=== PATIENT | male | born 1995 | race Caucasian/White ===

== ENCOUNTER 2017-06-16 17:56 | Emergency (ER) | payer OTHER ==
[2017-06-16 18:04] VITALS: TEMP 98.2
--- NOTE | 2017-06-16 18:08 | EDPHY ---
H & P Stated Complaint: POLYSUBSTANCE DRUG/ETOH ABUSE/WANTS DETOX HEROOIN XANAX/ KETAMINE Time Seen by Provider: 06/16/17 18:04 - Personal History Current Tetanus/Diphtheria Vaccine: No - Medical/Surgical History Hx Asthma: No Hx Chronic Respiratory Disease: No Hx Diabetes: No Hx Cardiac Disease: No Hx Renal Disease: No Hx Cirrhosis: No Hx Alcoholism: Yes Hx HIV/AIDS: No Hx Splenectomy or Spleen Trauma: No Other PMH: foot fx, HTN - Social History Smoking Status: Current every day smoker Constitutional: Initial Vital Signs Temperature (C) 36.8 C 06/16/17 18:00 Heart Rate 118 H 06/16/17 18:00 Respiratory Rate 22 H 06/16/17 18:00 Blood Pressure 136/113 H 06/16/17 18:00 O2 Sat (%) 91 L 06/16/17 18:00 O2 Delivery Mode Room Air O2 (L/minute) 2 Allergies/Adverse Reactions: No Known Allergies Allergy (Verified 06/16/17 17:59) Home Medications: Medication Instructions Recorded Lisinopril 04/09/15 Flexeril 06/16/17 GABAPENTIN 06/16/17 Omeprazole 06/16/17 Seroquel 06/16/17 Medical Decision Making - Diagnostics Imaging Results: Imaging Impressions Ankle X-Ray 06/16/17 19:17 Impression: No evidence for acute osseous abnormality. Chronic findings, as above. Wrist X-Ray 06/16/17 19:17 Impression: No evidence for acute osseous abnormal bony right wrist. Imaging: I viewed and interpreted images myself ED Course/Re-evaluation: CHIEF COMPLAINT: Polysubstance abuse / intoxication HISTORY OF PRESENT ILLNESS: This patient is a 22 year old male arriving with his friends following consumption of multiple substances today. He states is has taken "heroin (smoked ), ketamine (snorted), Xanax, alcohol, marijuana, Vyvanse, cocaine, and possibly a couple caps of mushrooms". He states he particularly enjoys " Country Time lemonade with ketamine - wowzers!" He currently feels "really really bad". He denies any injuries. His friends at bedside state they are only aware of heavy alcohol consumption, "the majority of a handle in the last two days". They state he has been talking about seeking treatment, but has also expressed suicidal ideation while drinking. They called a local detox center, but were referred to the ER for medical clearance and possible Librium prescription for withdrawal. His friend states he was previously in sober living at [facility], and asked to live with her following this discharge. He has stayed with her for the last five months, and began drinking and using pharmaceutical and illicit drugs again. His friends state he does not do heroin, and they doubt he has used the other substances he mentioned recently. His friends state he may have used cocaine in the last month. REVIEW OF SYSTEMS: A 10 point review of systems is unobtainable due to the patient's intoxication. PHYSICAL EXAM: HR, BP, O2 Sat, RR. Temp noted General Appearance: Alert, well hydrated, appropriate, and non-toxic appearing. Head: Atraumatic without scalp tenderness or obvious injury Eyes: Pupils equal, round, reactive to light and accommodation, EOMI, no trauma , no injection. Ears: Clear bilaterally, no perforation, normal landmarks Nose: Atraumatic, no rhinorrhea, clear. Throat: There is no erythema or exudates, no lesions, normal tonsils, mucus membranes moist. Neck: Supple, 2+ carotid upstroke, nontender, no lymphadenopathy. Respiratory: No retractions, no distress, no wheezes, and no accessory muscle use. Lungs are clear to auscultation bilaterally. Cardiovascular: Regular rate and rhythm, no murmurs, rubs, or gallops. Bilateral carotid, radial, dorsalis pedis, and posterior tibial pulses intact. Good capillary refill all extremities. Gastrointestinal: Abdomen is soft, nontender, non-distended, no masses, no rebound, no guarding, no peritoneal signs. Musculoskeletal: Normal active ROM of all extremities, atraumatic. Neurological: Alert, appropriate, and interactive. The patient has normal DTRs and non-focal cranial nerves, motor, sensory, and cerebellar exam. Skin: No rashes, good turgor, no nodules on palpation. Past medical history: Chronic alcoholic. Past surgical history: Noncontributory Family history: Noncontributory. Social history: Friends at bedside. Currently living with a friend following discharge from a sober living facility. DIFFERENTIAL DIAGNOSIS: The differential diagnosis for the patient's altered mental status included but was not limited to hypoglycemia, infectious process, electrolyte abnormality, head injury, neurologic process, anemia, cardiac process, and intoxicants. MEDICAL DECISION MAKING: The patient is a 22 year old male presenting for evaluation of polysubstance abuse. Plan for labs including CBC, BMP, EtOH, Drug Screen, Salicylates, and acetaminophen screening. Physical exam reveals no signs of trauma. Laboratory studies unremarkable. EtOH high at 368. All other substance tests negative including marijuana, benzodiazepines, amphetamines, and cocaine. Plan for transfer to the [facility] when the patient is sober enough. Reassessed. Discussed the patient's substance use. He is now complaining of right wrist and ankle pain secondary to a fall. Plan for x-rays. Right wrist and ankle x-rays reviewed. Negative for acute fracture. The patient's mother is now at bedside. Discussed followup. He is scheduled for an appointment tomorrow with [facility]. His mother agrees with discharge to the [facility] this evening. She will pick him up there tomorrow and take him to [facility] for further evaluation and possible placement. The patient is comfortable with this plan. - Data Points Laboratory Results: Laboratory Results 06/16/17 18:20 06/16/17 18:20 06/16/17 06/16/17 06/16/17 19:20 18:20 18:20 WBC 5.95 10^3/uL 10^3/uL (3.80-9.50) RBC 5.30 10^6/uL 10^6/uL (4.40-6.38) Hgb 17.3 g/dL g/dL (13.7-17.5) Hct 49.5 % % (40.0-51.0) MCV 93.4 fL fL (81.5-99.8) MCH 32.6 pg pg (27.9-34.1) MCHC 34.9 g/dL g/dL (32.4-36.7) RDW 12.7 % % (11.5-15.2) Plt Count 221 10^3/uL 10^3/uL (150-400) MPV 8.5 fL L fL (8.7-11.7) Neut % (Auto) 52.6 % % (39.3-74.2) Lymph % (Auto) 35.3 % % (15.0-45.0) Guthrie % (Auto) 10.4 % % (4.5-13.0) Eos % (Auto) 0.2 % L % (0.6-7.6) Baso % (Auto) 1.2 % % (0.3-1.7) Nucleat RBC Rel Count 0.0 % % (0.0-0.2) Absolute Neuts (auto) 3.13 10^3/uL 10^3/uL (1.70-6.50) Absolute Lymphs (auto) 2.10 10^3/uL 10^3/uL (1.00-3.00) Absolute Monos (auto) 0.62 10^3/uL 10^3/uL (0.30-0.80) Absolute Eos (auto) 0.01 10^3/uL L 10^3/uL (0.03-0.40) Absolute Basos (auto) 0.07 10^3/uL 10^3/uL (0.02-0.10) Absolute Nucleated RBC 0.00 10^3/uL 10^3/uL (0-0.01) Immature Gran % 0.3 % % (0.0-1.1) Immature Gran # 0.02 10^3/uL 10^3/uL (0.00-0.10) Sodium 148 mEq/L H mEq/L (134-144) Potassium 4.0 mEq/L mEq/L (3.5-5.2) Chloride 107 mEq/L mEq/L (97-110) Carbon Dioxide 20 mEq/l L mEq/l (22-31) Anion Gap 21 mEq/L H mEq/L (8-16) BUN 6 mg/dL L mg/dL (7-23) Creatinine 0.9 mg/dL mg/dL (0.7-1.3) Estimated GFR > 60 Glucose 93 mg/dL mg/dL (70-100) Calcium 9.7 mg/dL mg/dL (8.5-10.4) Salicylates < 1.0 mg/dL L mg/dL (2.0-20.0) Urine Opiates Screen NEGATIVE (NEGATIVE) Acetaminophen < 10 mcg/mL L mcg/mL (10-30) Urine Barbiturates NEGATIVE (NEGATIVE) Ur Phencyclidine Scrn NEGATIVE (NEGATIVE) Ur Amphetamine Screen NEGATIVE (NEGATIVE) U Benzodiazepines Scrn NEGATIVE (NEGATIVE) Urine Cocaine Screen NEGATIVE (NEGATIVE) U Marijuana (THC) Screen NEGATIVE (NEGATIVE) Ethyl Alcohol 368 mg/dL H mg/dL (0-10) Medications Given: Discontinued Medications Chlordiazepoxide (Librium 25 Mg Prepack#6) 1 btl TAKEHOME EDNOW ONE Stop: 06/16/17 20:35 Last Admin: 06/16/17 20:39 Dose: 1 btl Ondansetron HCl (Zofran) 4 mg IVP EDNOW ONE Stop: 06/16/17 18:36 Last Admin: 06/16/17 18:40 Dose: 4 mg Departure - Departure Disposition: Home, Routine, Self-Care Clinical Impression: Alcoholic intoxication Qualifiers: Complication of substance-induced condition: uncomplicated Qualified Code(s): F10.920 - Alcohol use, unspecified with intoxication, uncomplicated Condition: Good Instructions: Chlordiazepoxide (By mouth), Alcohol Intoxication (ED) Additional Instructions: 1. Follow up for your appointment at [facility] tomorrow as scheduled. 2. Proceed to the [facility] for continued assistance in your detox prior to your appointment. The [facility] should discharge you tomorrow to your mother so you can both go to [facility]. Referrals: [facility] Detox 24 Hours [Outside] - As per Instructions Report Scribed for: George Gotti Report Scribed by: Gavi Trinidad Date of Report: 06/16/17 Time of Report: 22:40
[2017-06-16 18:28] LABS: % IMMATURE GRANULYOCYTES 0.3 % (0.0-1.1); ABSOLUTE IMMATURE GRANULOCYTES 0.02 10^3/uL (0.00-0.10); ADD DIFF? NO; ADD MORPH? NO; ADD SCAN? NO; ATYPICAL LYMPHOCYTE FLAG 10 (0-99); FRAGMENT RBC FLAG 0 (0-99); HEMATOCRIT 49.5 % (40.0-51.0); HEMOGLOBIN 17.3 g/dL (13.7-17.5); LEFT SHIFT FLG 0 (0-99); LIPEMIA HEMOLYSIS FLAG 90 (0-99); MEAN CELL HEMOGLOBIN 32.6 pg (27.9-34.1); MEAN CELL HEMOGLOBIN CONCENTR. 34.9 g/dL (32.4-36.7); MEAN CELL VOLUME 93.4 fL (81.5-99.8); MEAN PLATELET VOLUME 8.5 fL (8.7-11.7); PLATELET CLUMPS FLAG 0 (0-99); PLATELET COUNT 221 10^3/uL (150-400); RED CELL DISTRIBUTION WIDTH 12.7 % (11.5-15.2)
[2017-06-16] MEDS ORDERED: ONDANSETRON 4 MG/2 ML VIAL IVP ONE (18:35)
[2017-06-16 19:41] LABS: ANION GAP 21 mEq/L (8-16); CALCIUM 9.7 mg/dL (8.5-10.4); CARBON DIOXIDE 20 mEq/l (22-31); CHLORIDE 107 mEq/L (97-110); CREATININE 0.9 mg/dL (0.7-1.3); GLOMERULAR FILTRATION RATE > 60; GLUCOSE 93 mg/dL (70-100); SALICYLATE < 1.0 mg/dL (2.0-20.0); SODIUM 148 mEq/L (134-144)
[2017-06-16 19:54] LABS: ETHANOL SERUM 368 mg/dL (0-10)
[2017-06-16] MEDS ORDERED: CHLORDIAZEPOXIDE 25MG PREPK#6 BTL TAKEHOME ONE (20:34)
[2017-06-16 20:36] VITALS: BP 137/80; PULSE 93; RESP 18
[2017-06-16 20:45] VITALS: O2SAT 92
== END 2017-06-16 20:48 | disposition home or self-care (01) ==
DX: F10.920 Alcohol use, unspecified with intoxication, uncomplicated (principal); F17.200 Nicotine dependence, unspecified, uncomplicated; I10 Essential (primary) hypertension
CPT/HCPCS: 80305; 96374; G0480; J2405